=== PATIENT | male | born 1995 | race Caucasian/White ===

== ENCOUNTER 2021-03-29 15:15 | Outpatient (CLI) | payer OTHER, SELFPAY ==
[2021-03-29 18:53] LABS: Basophils Percent Auto 0.7 % (0.2-1.2); Eosinophils Absolute Auto 0.1 K/mm3 (0-0.3); Eosinophils Percent Auto 1.4 % (0-4.4); Hematocrit 42.2 % (42.0-52.0); Hemoglobin 14.7 g/dL (14.0-18.0); Immature Granulocyte Absolute 0.01 K/mm3 (0.00-0.031); Immature Granulocyte Percent A 0.2 % (0-0.5); Lymphocytes Absolute Auto 1.15 K/mm3 (0.9-3.2); Lymphocytes Percent Auto 19.7 % (18.3-44.2); Mean Corpuscular HGB Conc 34.8 g/dl (32-36); Mean Corpuscular Hemoglobin 30.8 pg (26-34); Mean Corpuscular Volume 88.5 fl (80-100); Mean Platelet Volume 10.8 fl (7.4-10.4); Monocytes Absolute Auto 0.5 K/mm3 (0.1-0.6); Monocytes Percent Auto 9.3 % (2.6-8.5); Neutrophils Percent Auto 68.7 % (45.5-73.1); Platelet Count Result 238 k/mm3 (150-375); Red Blood Count 4.77 M/mm3 (4.6-6.20); Red Cell Distribution Width 12.5 % (11.5-14.5); White Blood Count 5.8 K/mm3 (4.5-10.0)
[2021-03-29 19:03] LABS: Alanine Aminotransferase 51 U/L (4-50); Albumin Level 4.9 g/dL (3.5-5.1); Alkaline Phosphatase 60 U/L (38-126); Anion Gap 7 mmol/L (8-16); Aspartate Amino Transferase 34 U/L (17-59); Bilirubin,Total 0.8 mg/dL (0.2-1.3); Blood Urea Nitrogen 16 mg/dL (9-20); Calcium 9.7 mg/dL (8.4-10.2); Carbon Dioxide 29 mmol/L (22-30); Chloride 100 mmol/L (98-107); Cholesterol 170 mg/dL (0-200); Estimated Glomerular Filt Rate > 60; Glucose 81 mg/dL (65-110); HDL Direct 62 mg/dL; Potassium 4.1 mmol/L (3.4-5.0); Sodium 136 mmol/L (137-145); Triglycerides 141 mg/dL (<150)
[2021-03-29 19:14] LABS: LDL Cholesterol Direct 93 mg/dL
== END 2021-03-29 15:16 | disposition home or self-care (01) ==
PROVIDERS: PCP Internal Medicine Infectious Disease; Visit Provider Internal Medicine Infectious Disease
DX: Z00.00 Encounter for general adult medical examination without abnormal findings (principal)
CPT/HCPCS: 36415; 80053; 80061; 85025

== ENCOUNTER 2021-09-10 11:28 | Outpatient (CLI) | payer OTHER, SELFPAY ==
[2021-09-10 19:36] LABS: Iron 145 ug/dL (49-181)
[2021-09-10 19:45] LABS: Percent Iron Saturation 42 % (20-50)
== END 2021-09-10 11:29 | disposition home or self-care (01) ==
PROVIDERS: PCP Internal Medicine Infectious Disease; Visit Provider Internal Medicine Infectious Disease
DX: R42 Dizziness and giddiness (principal)
CPT/HCPCS: 36415; 82728; 83540; 83550

== ENCOUNTER 2022-01-02 17:54 | Emergency (ER) | payer OTHER, SELFPAY ==
[2022-01-02 18:00] VITALS: BP 128/87; PULSE 56; RESP 20; TEMP 36.8; O2SAT 100
--- NOTE | 2022-01-02 18:05 | ED.WOUNDLAC ---
HPI - Wound/Laceration General Chief Complaint: Wound/Laceration Stated Complaint: right thumb lac Time Seen by Provider: 01/02/22 18:23 Source: patient and RN notes reviewed Mode of arrival: ambulatory Limitations: no limitations History of Present Illness HPI narrative: 26-year-old male presents with concern for injury to the first digit of his right hand. Reports just prior to arrival he was slicing peppers when he sliced the tip of the digit. Reports the skin flap came off, he rinsed it and reapply the skin flap and applied pressure and then presented to [facility] care. He reports he is up-to-date on his tetanus vaccination. He reports the bleeding is under control. He reports pain to the tip of the digit Related Data Allergies Allergy/AdvReac Type Severity Reaction Status Date / Time Sulfa (Sulfonamide Allergy Unknown Unknown Verified 01/02/22 18:10 Antibiotics) Review of Systems Review of Systems: CONSTITUTIONAL: Denies malaise, chills, sweats, or fever. SKIN: Reports laceration to the tip of the first digit of the right hand MUSCULOSKELETAL: Denies muscle skeletal pain NEUROLOGIC: Denies numbness, weakness All systems reviewed & are unremarkable except as noted in HPI and below PMFSH Social History Social History Smoking status: Never smoker Alcohol intake: current Substance use: never Substance use type: does not use Comments At time of signature, agree with nursing past medical, surgical, social and family history. There is no relevant family history pertinent to the presenting complaint Exam Narrative: GENERAL: Well-appearing, well-nourished, and in no acute distress. HEAD: Normocephalic, atraumatic. EYES: PERRLA, conjunctivae clear, and EOMI. ENT: Mucous membranes moist. Oropharynx without edema, erythema or lesions. NECK: Supple. No lymphadenopathy CHEST: Clear to auscultation. No respiratory distress. HEART: Regular rate and rhythm. SKIN: Warm, dry. 0.75 cm circular wound with skin flap noted to the tip of the first digit of the right hand. Skin is adhered, no active bleeding. Skin flap is somewhat pale with slow cap refill. NEURO: Alert and oriented x3. PSYCH: Normal mood and affect Course Course Emergency Course: Wound was soaked with technic care and saline, skin flap was well adhered to the tissue and there was no active bleeding. However the skin flap was pale without good cap refill, the skin flap appears to be superficial involving the epidermis and dermis. Discussed options with patient of leaving the skin flap, treating prophylactically for infection versus removing the skin flap and treating for avulsion. It was decided to leave the skin flap, glue the skin and treat prophylactically Patient is aware of diagnosis, understands and agrees to treatment plan. Anticipatory guidance given. Patient agrees to follow-up as directed and is aware of reasons to seek care at the emergency department. Portions of this record may have been created with voice recognition software Level of Care: Express Care Visit Vital Signs Vital signs: Reviewed. Procedures Laceration Laceration 1: Date: 01/02/22 Time: 18:35 Site: hand Side (If applicable): right Size (cm): 0.75 Description: flap Depth: simple, single layer Pre-repair: irrigated ====== Skin Level ====== Skin layer closed with: dermabond ====== Subcutaneous Layer ====== ====== Muscle Layer ====== ====== Tendon Layer ====== MDM - Wound/Laceration MDM Narrative Medical decision making narrative: Exam findings show no acute concerns or changes; patient is non-toxic appearing and is in no distress. Patient is appropriate for outpatient treatment and follow-up. Differential Diagnosis Differential diagnosis: Likely laceration, abrasion and avulsion of skin Critical Care Time Critical Care
== END 2022-01-02 18:53 | disposition home or self-care (01) ==
PROVIDERS: Emergency Provider Nurse Practitioner; PCP Internal Medicine Infectious Disease
DX: S61.011A Laceration without foreign body of right thumb without damage to nail, initial encounter (principal); W45.8XXA Other foreign body or object entering through skin, initial encounter; Y93.G9 Activity, other involving cooking and grilling
CPT/HCPCS: 12001; 99213; G0463

== ENCOUNTER 2022-05-15 08:26 | Outpatient (CLI) | payer OTHER, SELFPAY ==
[2022-05-15 19:47] LABS: Hematocrit 43.2 % (42.0-52.0); Hemoglobin 14.1 g/dL (14.0-18.0); Mean Corpuscular HGB Conc 32.6 g/dl (32-36); Mean Corpuscular Hemoglobin 30.1 pg (26-34); Mean Corpuscular Volume 92.1 fl (80-100); Mean Platelet Volume 11.1 fl (7.4-10.4); Platelet Count Result 209 k/mm3 (150-375); Red Blood Count 4.69 M/mm3 (4.6-6.20); White Blood Count 5.2 K/mm3 (4.5-10.0)
[2022-05-15 20:51] LABS: Alanine Aminotransferase 68 U/L (6-50); Albumin Level 4.6 g/dL (3.5-5.1); Alkaline Phosphatase 58 U/L (38-126); Anion Gap 4 mmol/L (8-16); Aspartate Amino Transferase 41 U/L (17-59); Blood Urea Nitrogen 11 mg/dL (9-20); Carbon Dioxide 31 mmol/L (22-30); Chloride 100 mmol/L (98-107); Cholesterol 154 mg/dL (0-200); Estimated Glomerular Filt Rate > 60; Glucose 82 mg/dL (65-110); HDL Direct 45 mg/dL; Potassium 4.1 mmol/L (3.4-5.0); Sodium 135 mmol/L (137-145); Triglycerides 94 mg/dL (<150)
[2022-05-15 21:01] LABS: LDL Cholesterol Direct 83 mg/dL
[2022-05-15 22:34] LABS: Iron 130 ug/dL (49-181)
[2022-05-15 22:43] LABS: Percent Iron Saturation 36 % (20-50)
== END 2022-05-15 08:27 | disposition home or self-care (01) ==
LOC: ANHBWCLAB 08:30
PROVIDERS: PCP Family Medicine; Visit Provider Family Medicine
DX: Z00.00 Encounter for general adult medical examination without abnormal findings (principal); R74.8 Abnormal levels of other serum enzymes; H81.10 Benign paroxysmal vertigo, unspecified ear
CPT/HCPCS: 36415; 80053; 80061; 83540; 83550; 85027

== ENCOUNTER 2022-07-11 16:13 | Emergency (ER) | payer OTHER, SELFPAY ==
[2022-07-11 16:18] VITALS: BP 126/80; PULSE 65; RESP 16; TEMP 36.7; O2SAT 100
--- NOTE | 2022-07-11 16:41 | ED.URI ---
HPI - URI/Sore Throat General Chief Complaint: Upper Respiratory Infection Stated Complaint: productive cough, toothache Time Seen by Provider: 07/11/22 16:41 Source: patient, RN notes reviewed and old records reviewed Mode of arrival: ambulatory Limitations: no limitations History of Present Illness HPI Narrative: 26-year-old male presents to [facility] with 5 day history postnasal drainage, congestion, fevers, sinus drainage and pressure. Patient reports that he has been taking NyQuil,DayQuil, Sudafed, Mucinex, Tylenol and Ibuprofen for his symptoms. Patient states that he has some upper front teeth discomfort and reports history of previous sinus infections. MD elicited complaint: cough and sore throat Pertinent past history: sinusitis Onset (ago): day(s) (5) Pain scale (0-10): 6 Treatments prior to arrival: acetaminophen, ibuprofen, cold medicine and antibiotics Related Data Allergies Allergy/AdvReac Type Severity Reaction Status Date / Time Sulfa (Sulfonamide Allergy Unknown Unknown Verified 07/11/22 16:25 Antibiotics) Review of Systems Review of Systems: CONSTITUTIONAL: Reports malaise, chills, sweats, or fever. EYES: Denies visual changes, redness, or discharge. ENT: Reports rhinorrhea, congestion, sinus pain,no otalgia no sore throat. CARDIOVASCULAR: Denies chest pain, palpitations, or edema. RESPIRATORY: Reports cough.? Denies dyspnea. GASTROINTESTINAL: Denies abdominal pain, nausea, vomiting, diarrhea SKIN: Denies rash or itching. MUSCULOSKELETAL: Denies myalgia. NEUROLOGIC: Reports headache. All systems reviewed & are unremarkable except as noted in HPI and below PMFSH Past Medical History Medical History (Updated 07/11/22 @ 17:05 by Heydi Lynn NP) Anxiety Sinusitis Social History Social History Smoking status: Never smoker Alcohol intake: current Substance use: never Substance use type: does not use Lack of Transportation: No Lack of Food: Never True Current Housing: I Have Housing Concerned About Future Housing: No Difficulty Paying Gas/Electric Bills: No Difficulty Paying for Meds: No Currently Unemployed: No Education: Bachelor's Degree Difficulty w/ Childcare or Family Care: No Comments At time of signature, agree with nursing past medical, surgical, social and family history. There is no relevant family history pertinent to the presenting complaint Exam Narrative: GENERAL: Well-appearing, well-nourished, and in no acute distress. HEAD: Normocephalic EYES: PERRLA, conjunctivae clear ENT: Nares clear, turbinates edematous and erythematous, clear discharge. Mucous membranes moist. TM pearly craven with dull light reflex bilaterally; no tragal tenderness. Oropharynx erythematous without lesions. Tonsils not enlarged and without exudate, no drooling, no hoarseness, no trismus, uvula midline.post nasal drainage NECK: Supple. No lymphadenopathy CHEST: Clear to auscultation, breath sounds equal. No wheezing, rhonchi, rales, or stridor. No respiratory distress, speaks in full sentences.SAO2 100% on room air HEART: Regular rate and rhythm. No murmur heard. SKIN: Warm, dry, no rash. NEURO: Alert and oriented x3. PSYCH: Normal mood and affect Course Course Emergency Course: Patient is aware of diagnosis, understands and agrees to treatment plan.? Anticipatory guidance given.? Patient agrees to follow-up as directed and is aware of reasons to seek care at the emergency department. Portions of this record may have been created with voice recognition software Level of Care: Express Care Visit Vital Signs Vital signs: Vital Signs Temperature 36.7 C 07/11/22 16:18 Pulse Rate 65 07/11/22 16:18 Respiratory Rate 16 07/11/22 16:18 Blood Pressure 126/80 07/11/22 16:18 Pulse Oximetry 100 07/11/22 16:18 Oxygen Delivery Room Air 07/11/22 16:18 Temperature 3
== END 2022-07-11 17:00 | disposition home or self-care (01) ==
PROVIDERS: Emergency Provider Registered Nurse; PCP Family Medicine
DX: J01.40 Acute pansinusitis, unspecified (principal)
CPT/HCPCS: 99213; G0463

== ENCOUNTER 2022-09-02 10:36 | Outpatient (CLI) | payer OTHER, SELFPAY ==
[2022-09-02 20:28] LABS: Iron 80 ug/dL (49-181)
[2022-09-02 20:37] LABS: Percent Iron Saturation 22 % (20-50)
== END 2022-09-02 10:37 | disposition home or self-care (01) ==
LOC: ANHBWCLAB 10:38
PROVIDERS: PCP Family Medicine; Visit Provider Family Medicine
DX: E61.1 Iron deficiency (principal)
CPT/HCPCS: 36415; 82728; 83540; 83550

== ENCOUNTER 2022-10-11 18:42 | Emergency (ER) | payer OTHER, SELFPAY ==
[2022-10-11 18:49] VITALS: BP 134/68; PULSE 74; RESP 16; TEMP 36.8; O2SAT 100
--- NOTE | 2022-10-11 18:59 | ED.URI ---
HPI - URI/Sore Throat General Chief Complaint: Upper Respiratory Infection Stated Complaint: sore throat Time Seen by Provider: 10/11/22 19:00 History of Present Illness HPI Narrative: 27-year-old male presented for complaint of sore throat for 4 days. Endorses ears felt like they are burning, and had a day of chills at onset. He denies shortness of breath, wheezing, nausea, vomiting, fevers or chills. Has taken Tylenol for symptoms. States he had a negative strep test 2 days ago at an outside urgent care. Related Data Allergies Allergy/AdvReac Type Severity Reaction Status Date / Time Sulfa (Sulfonamide Allergy Unknown Unknown Verified 07/11/22 16:25 Antibiotics) Review of Systems Review of Systems: CONSTITUTIONAL: Denies body aches, fever, chills, or sweats. EYES: Denies visual changes, redness, or discharge. ENT: Reports sore throat Denies rhinorrhea, congestion, or otalgia. CARDIOVASCULAR: Denies chest pain, palpitations, or edema. RESPIRATORY: Denies dyspnea. GASTROINTESTINAL: Denies abdominal pain, nausea, vomiting, or diarrhea. SKIN: Denies rash, itching, or wounds. MUSCULOSKELETAL: Denies back pain, joint pain, or myalgia. NEUROLOGIC: Denies headache PMFSH Past Medical History Medical History Anxiety Sinusitis Social History Social History Smoking status: Never smoker Alcohol intake: current Substance use: never Substance use type: does not use Lack of Transportation: No Lack of Food: Never True Current Housing: I Have Housing Concerned About Future Housing: No Difficulty Paying Gas/Electric Bills: No Difficulty Paying for Meds: No Currently Unemployed: No Education: Bachelor's Degree Difficulty w/ Childcare or Family Care: No Exam Narrative: GENERAL: well-appearing, no acute distress. EYES: conjunctivae clear ENT: Mucous membranes moist. TM pearly craven with normal light reflex bilaterally; no tragal tenderness. Oropharynx erythematous Tonsils 1+ without exudate. No drooling, no hoarseness, no trismus, uvula midline. No tripod positioning, hot potato voice, or soft palate swelling. NECK: Supple. No lymphadenopathy CHEST: Clear to auscultation, breath sounds equal. No respiratory distress, speaks in full sentences. HEART: Regular rate and rhythm. No murmur heard. SKIN: Warm, dry, no rash. NEURO: Alert and oriented x3. Course Course Emergency Course: Patient is aware of diagnosis, understands and agrees to treatment plan. Anticipatory guidance given. Patient agrees to follow-up as directed and is aware of reasons to seek care at the emergency department. Portions of this record may have been created with voice recognition software Level of Care: Express Care Visit Vital Signs Vital signs: Vital Signs Temperature 98.2 F 10/11/22 18:49 Pulse Rate 74 10/11/22 18:49 Respiratory Rate 16 10/11/22 18:49 Blood Pressure 134/68 10/11/22 18:49 Pulse Oximetry 100 10/11/22 18:49 Oxygen Delivery Room Air 10/11/22 18:49 Temperature 98.2 F 10/11/22 18:49 Pulse Rate 74 10/11/22 18:49 Respiratory Rate 16 10/11/22 18:49 Blood Pressure 134/68 10/11/22 18:49 Pulse Oximetry 100 10/11/22 18:49 Oxygen Delivery Room Air 10/11/22 18:49 MDM - URI/Sore Throat MDM Narrative Medical decision making narrative: strep result reviewed with pt. Advise supportive treatments. Patient is appropriate for outpatient treatment and follow-up. Differential Diagnosis Differential diagnosis: Likely upper respiratory infection, viral infection and pharyngitis Discharge Plan Discharge Clinical Impression: Pharyngitis Patient Disposition: Home, Self-Care Condition: Stable Instructions: Antibiotic Form, Pharyngitis (ED) Additional Instructions: Rapid strep swab was negative today You will be notifi
== END 2022-10-11 19:18 | disposition home or self-care (01) ==
PROVIDERS: Emergency Provider Nurse Practitioner Family; PCP Family Medicine
DX: J02.9 Acute pharyngitis, unspecified (principal)
CPT/HCPCS: 87081; 87880; 99213; G0463

== ENCOUNTER 2023-05-07 16:16 | Outpatient (CLI) | payer OTHER, SELFPAY ==
--- NOTE | ~2023-05-07 | US_ITS ---
EXAMINATION: US soft tissue head and neck DATE: 05/07/2023 16:47 INDICATION: Enlarged lymph nodes with palpable lumps the left submandibular region TECHNIQUE: Multiple grayscale and Doppler ultrasound images of the left submandibular region of rosita rn were obtained. COMPARISON: None FINDINGS/IMPRESSION: Palpable abnormality of concern corresponds to a normal sized 7 x 5 x 3 mm left submandibular lymph n ode with normal central echogenic fatty hilum. Reviewed, dictated and finalized at location A. [facility]
== END 2023-05-07 16:17 | disposition home or self-care (01) ==
LOC: ANHIMG 16:19
PROVIDERS: PCP Family Medicine; Visit Provider Family Medicine
DX: R59.0 Localized enlarged lymph nodes (principal)
CPT/HCPCS: 76536

== ENCOUNTER 2023-09-25 19:34 | Emergency (ER) | payer OTHER, SELFPAY ==
--- NOTE | 2023-09-25 19:41 | ED.URI ---
HPI - URI/Sore Throat General Chief Complaint: Upper Respiratory Infection Stated Complaint: Sinus Pain Time Seen by Provider: 09/25/23 19:41 Source: patient, RN notes reviewed and old records reviewed Mode of arrival: ambulatory Limitations: no limitations History of Present Illness HPI Narrative: 28-year-old male presents to the [facility] with complaints of sinus pain and pressure for 8 days, Has a history of multiple sinus infections over the last year. Has tried [id number] products with no relief Related Data Allergies Allergy/AdvReac Type Severity Reaction Status Date / Time Sulfa (Sulfonamide Allergy Unknown Unknown Verified 09/25/23 19:42 Antibiotics) Review of Systems Review of Systems: All systems reviewed & are unremarkable except as noted in HPI and below Constitutional: Constitutional: Reports no additional constitutional complaints Eyes: Eyes: Reports no additional eye complaints ENT: Reports as per HPI, Reports nasal congestion and Reports sinus pressure Cardiovascular: Cardiovascular: Reports no additional cardiovascular complaints, Denies chest pain and Denies dyspnea Respiratory: Respiratory: Reports no additional respiratory complaints, Denies chest congestion, Denies cough and Denies dyspnea Gastrointestinal: Gastrointestinal: Reports no additional gastrointestinal complaints, Denies abdominal pain, Denies nausea and Denies vomiting Musculoskeletal: Musculoskeletal: Reports no additional musculoskeletal complaints Integumentary/Breasts: Skin/Breast: Reports system reviewed and no additional complaints, except as docu Neurologic: Reports system reviewed and no additional complaints, except as documented Psychiatric: Psychiatric: Reports no additional psychiatric complaints Allergic/Immunologic: Allergic/Immunologic: Reports no additional allergic/immunologic complaints [facility] Past Medical History Medical History Anxiety Sinusitis Social History Social History Smoking status: Never smoker Alcohol intake: current Substance use: never Substance use type: does not use Lack of Transportation: No Lack of Food: Never True Current Housing: I Have Housing Concerned About Future Housing: No Difficulty Paying Gas/Electric Bills: No Difficulty Paying for Meds: No Currently Unemployed: No Education: Bachelor's Degree Difficulty w/ Childcare or Family Care: No Comments At the time of my signature, I reviewed and agree with the nursing past medical, surgical, social, and family history. There is no relevant family history pertinent to the patient complaint. Exam Const: General: cooperative, healthy appearing, comfortable, no acute distress, well developed, alert and well nourished Nutritional Appearance: well nourished Orientation/consciousness: patient oriented x3 Limitations: no limitations HENMT: Head: normal to inspection Ears: hearing grossly normal bilaterally, external ears normal, TM's normal bilaterally, EAC's normal, mastoids normal and no periauricular adenopathy Face/Nose/Sinus: Normal external nose present, Normal nares present, Abnormal mucous membranes and turbinates present boggy and erythematous, normal facial exam, face symmetric, No erythema, No edema and sinus tenderness Face and sinus: normal facial exam and face symmetric Mouth: Yes Normal oral and palatal mucosa present, Yes lip normal and Yes moist mucous membranes Throat: posterior oropharynx normal and uvula midline Eyes: General: appearance normal, both eyes and all related structures Alignment and Position: alignment normal Periorbital: periorbital findings normal Pupils: Equal, round and reactive pupils present EOM: EOMs intact bilaterally Neck: Neck: normal visual inspection, full ROM, no lymphadenopathy and no meningeal signs Chest: Chest palpation & inspection: normal i
[2023-09-25 19:42] VITALS: BP 150/90; PULSE 70; RESP 16; TEMP 36.9; O2SAT 98
[2023-09-25 19:43] VITALS: BP 150/90; PULSE 70; RESP 16; TEMP 36.9; O2SAT 98
== END 2023-09-25 20:00 | disposition home or self-care (01) ==
PROVIDERS: Emergency Provider Nurse Practitioner; PCP Family Medicine
DX: J32.9 Chronic sinusitis, unspecified (principal)
CPT/HCPCS: 99213; G0463

== ENCOUNTER 2024-06-13 09:46 | Emergency (ER) | payer OTHER, SELFPAY ==
[2024-06-13 09:56] VITALS: BP 135/86; PULSE 61; RESP 20; TEMP 36.7; O2SAT 100
--- NOTE | 2024-06-13 10:17 | ED_ITS ---
HPI - Dental/Oral General Chief complaint: Dental/Oral Stated complaint: Mouth Sore Time Seen by Provider: 06/13/24 10:17 Source: patient Mode of arrival: ambulatory Limitations: no limitations History of Present Illness HPI Narrative: 28-year-old male presents with sore to back of mouth for approximately 1 week. Reports worsening of swelling and redness with pain radiating to jaw and right ear. Patient states about a week ago he was eating a piece of pie and the crust on the pad I cut the back of his mouth. Afebrile. All systems reviewed and negative except as noted above. Related Data Allergies Allergy/AdvReac Type Severity Reaction Status Date / Time Sulfa (Sulfonamide Allergy Unknown Unknown Verified 06/13/24 09:56 Antibiotics) Review of Systems Review of Systems: CONSTITUTIONAL: Denies fever, chills, or sweats. EYES: Denies visual changes, redness, or discharge. ENT: Denies rhinorrhea, congestion, sore throat, or otalgia. Reports sore to back of mouth with redness and swelling. CARDIOVASCULAR: Denies chest pain, palpitations, or edema. RESPIRATORY: Denies cough or dyspnea. GASTROINTESTINAL: Denies abdominal pain, nausea, vomiting, or diarrhea. GENITOURINARY: Denies dysuria or hematuria. SKIN: Denies rash or itching. MUSCULOSKELETAL: Denies back pain, joint pain, or myalgia. NEUROLOGIC: Denies headache, numbness, or weakness. PSYCHIATRIC: Denies anxiety or depression. All other systems reviewed are negative, except as documented in HPI. [facility] Past Medical History Medical History Anxiety Sinusitis Social History Social History Smoking status: Never smoker Alcohol intake: current Substance use: never Substance use type: does not use Lack of Transportation: No Lack of Food: Never True Current Housing: I Have Housing Concerned About Future Housing: No Difficulty Paying Gas/Electric Bills: No Difficulty Paying for Meds: No Currently Unemployed: No Education: Bachelor's Degree Difficulty w/ Childcare or Family Care: No Comments At time of signature, agree with nursing past medical, surgical, social and family history. There is no relevant family history pertinent to the presenting complaint. Exam Narrative: GENERAL: This is a well-nourished, well-developed patient, in no apparent distress. HEAD: normocephalic, atraumatic. EYES: PERRL. Sclera clear/white. Vision is grossly intact. EARS: External ears normal NOSE: External nose normal THROAT: Infected abrasion to posterior pharynx, right side, erythematous and swollen with small amount yellow drainage to center NECK: Neck supple, non-tender without lymphadenopathy, masses or thyromegaly. CARDIOVASCULAR: Regular rate and rhythm without murmurs, gallops, or rubs. RESPIRATORY: Clear to auscultation. Breath sounds equal bilaterally. No wheezes, rales, or rhonchi. SKIN: warm, Dry, intact with no suspicious lesions or rash, good texture and turgor. NEURO: awake, alert, and oriented to person, place and time. There were no obvious focal neurologic abnormalities. EXTREMITIES: No joint tenderness, effusion, or edema noted. Course Course Level of Care: Express Care Visit Vital Signs Vital signs: Vital Signs Temperature 36.7 C 06/13/24 09:56 Pulse Rate 61 06/13/24 09:56 Respiratory Rate 20 06/13/24 09:56 Blood Pressure 135/86 06/13/24 09:56 Pulse Oximetry 100 06/13/24 09:56 Oxygen Delivery Room Air 06/13/24 09:56 Temperature 36.7 C 06/13/24 09:56 Pulse Rate 61 06/13/24 09:56 Respiratory Rate 20 06/13/24 09:56 Blood Pressure 135/86 06/13/24 09:56 Pulse Oximetry 100 06/13/24 09:56 Oxygen Delivery Room Air 06/13/24 09:56 reviewed MDM - Dental/Oral MDM Narrative Medical decision making narrative: will treat infected abrasion to oral mucosa with Augmentin. Patient is well- appearing, nontoxic. Patient is aware of diagnosis, understands and agrees to treatment plan. Anticipatory guidance given. Patient agrees to follow-up as directed and is aware of reasons to seek care at the emergency department. Portions of this record may have been created with voice recognition software Discharge Plan Discharge Clinical Impression: Infection of oral mucosa Patient Disposition: Home, Self-Care Condition: Stable Instructions: Antibiotic Form Additional Instructions: Take antibiotic as prescribed Until gone. Take ibuprofen or Tylenol every 6-8 hours as needed for pain. Continue with normal oral hygiene. Apply lidocaine ointment to affected area every 4-6 hours as needed for pain. Follow-up with primary care physician or your dentist if not improving. Patient Language: Wolof Prescriptions: New amoxicillin-pot clavulanate 875-125 mg tablet 1 tablet PO Q12H 10 Days Qty: 20 0RF lidocaine HCl [Lidocaine Viscous] 2 % solution 1 applic mucous membrane Q4-6H PRN (Reason: pain) Qty: 100 0RF Rx Instructions: apply sparingly to painful tooth/gums Follow-up/Referrals: Renetta Dolan APRN [Primary Care Provider] - Time of Disposition: 10:24
--- OUTSIDE RECORDS SUMMARY | 2024-06-13 10:26 | XMS_ITS | Clinical Summary ---
Author Organization [facility] Care Team Providers Care Finance Executive Name Role Phone Unavailable Primary Care Provider Unavailabl e Social History Tobacco Use Types Packs/Day Years Used Date Smoking Tobacco: Never Assessed Sex and Gender Information Value Date Recorded Sex Assigned at Not on file Legal Sex Male 9:02 PM CDT Gender Identity Not on file Sexual Orientation Not on file Plan of Treatment Health Maintenance Due Date Last Done Comments Hepatitis C Virus (HCV) Screening 1994 TdaP Immunization 1994 Hepatitis B Immunization (1 of 3 - 19+ 3-dose series) 2013 Influenza Immunization (#1) 2024 SARS-COV-2 Immunization ( - 2023- season) 2024 Respiratory Syncytial Virus (RSV) Immunization (Adult) (1 - 1-dose 75+ series) 2069 Meningococcal Immunization (ACWY) Aged Out No longer eligible based on patient's age to complete this topic Pneumococcal Immunization Combined Aged Out No longer eligible based on patient's age to complete this topic Rotavirus Immunization Aged Out No lo nger eligible based on patient's age to complete this topic
--- OUTSIDE RECORDS SUMMARY | 2024-06-13 10:26 | XMS_ITS | Clinical Summary ---
Author Organization [facility] [address] Address [address] [place] [address] Phone Care Team Providers Care Front Of House Manager Name Role Phone Bhargav Ross MD Primary Care Provider [phone]- [phone] Allergies Active Allergy Reactions Criticality Noted Date Comments Sulfa (Sulfonamide Antibiotics) Medications multivitamin (MULTIPLE VITAMINS) tablet tablet take 1 tablet by oral route every day with food 0 0 10/03/2014 Active omega 5-svy-idl-fish oil (FISH OIL) 60-90-500 mg capsule,delayed release(DR/EC) 0 0 10/03/2014 Active loratadine 10 mg capsule Take by mouth Activ e albuterol HFA (PROVENTIL HFA,VENTOLIN HFA,PROAIR HFA) 90 mcg/actuation inhaler Inhale 2 puffs every 6 (six) hours as needed for wheezing 1 each 1 11/07/2021 Active Active Problems No known active problems Immunizations Name Administration Dates Next Due Influenza, Quadrivalent, Spl it, Preservative Free, Intramuscular 03/29/2021 Influenza, Split 05/19/2013 Tdap 06/05/2021 Social History Tobacco Use Types Packs/Day Years Used Date Smoking Tobacco: Former Smokeless Tobacco: Former Alcohol Use Standard Drinks/Week Comments Yes 2 (1 standard drink = 0.6 oz pur e alcohol) Personal Safety Answer Date Recorded Getting School Help Needed Not on file 07/09 Sex and Gender Information Value Date Recorded Sex Assigned at Not on file Legal Sex Male 1:44 AM PAINT STOCKMAN Gender Identity Male 09/09/2018 12:11 PM CDT Sexual Orientation Straight 09/09/2018 12 :11 PM CDT Obstetrics History Last Filed Vital Signs Vital Sign Reading Time Taken Comments Blood Pressure 130/86 06/11/2021 11:03 AM PAINT STOCKMAN Pulse 62 06/11/2021 11:00 AM PAINT STOCKMAN Temperature 36.3 ??C (97.3 ??F) 06/11/2021 1 1:00 AM PAINT STOCKMAN Respiratory Rate 16 06/11/2021 11:0 0 AM PAINT STOCKMAN Oxygen Saturation 98% 06/11/2021 11: 00 AM PAINT STOCKMAN Inhaled Oxygen Concentration - - Weight 71.1 kg (156 lb 12.8 oz) 022 11:00 AM PAINT STOCKMAN Height 172.7 cm (5' 8 ) 12/21/2018 11:2 2 AM CDT Body Mass Index 23.84 12/21/2018 11:22 AM CDT Plan of Treatment Not on file Insurance [facility] Care Teams Front Of House Manager Relationship Specialty Start Date End Date Bhargav Ross MD [address] [place] [address] PCP - General 08/11/16
--- OUTSIDE RECORDS SUMMARY | 2024-06-13 10:26 | XMS_ITS | Referral Summary ---
Author Organization CC [facility] [address] Address [address] [place] [address] Phone Care Team Providers Care Dish Carrier Name Role Phone Bhargav Ross MD Primary Care Provider [phone]- [phone] Allergies Active Allergy Reactions Criticality Noted Date Comments Sulfa (Sulfonamide Antibiotics) Medications multivitamin (MULTIPLE VITAMINS) tablet tablet take 1 tablet by oral route every day with food 0 0 10/03/2014 Active omega 5-clx-fjo-fish oil (FISH OIL) 60-90-500 mg capsule,delayed release(DR/EC) [...] on file Legal Sex Male 1:44 AM MARINE OPERATIONS COORDINATOR Gender Identity Male 09/09/2018 12:11 PM CDT Sexual Orientation Straight 09/09/2018 12 :11 PM CDT Last Filed Vital Signs Vital Sign Reading Time Taken Comments Blood Pressure 130/86 06/11/2021 11:03 AM MARINE OPERATIONS COORDINATOR Pulse 62 06/11/2021 11:00 AM MARINE OPERATIONS COORDINATOR Temperature 36.3 ??C (97.3 ??F) 06/11/2021 1 1:00 AM MARINE OPERATIONS COORDINATOR Respiratory Rate 16 06/11/2021 11:0 0 AM MARINE OPERATIONS COORDINATOR Oxygen Saturation 98% 06/11/2021 11: 00 AM MARINE OPERATIONS COORDINATOR Inhaled Oxygen Concentration - - Weight 71.1 kg (156 lb 12.8 oz) 022 11:00 AM MARINE OPERATIONS COORDINATOR Height 172.7 cm (5' 8 ) 12/21/2018 11:2 2 AM CDT Body Mass Index 23.84 12/21/2018 11:22 AM CDT Plan of Treatment Not on file Insurance [facility] Member Subscriber Plan / Payer (Ef fective 2016-Present) Name:Horace Mohan Member ID:[id number] Relation to Subscriber:Child Name:HUBERT MOHAN Subscriber ID:[id number] Date of :1958 (Home) Address: [address] [place] [id number] Payer ID:[id number] Type:[employer] HMO/PPO Address: [facility] [id number] [place] [address] [facility] [place] [facility] Care Teams Dish Carrier Relationship Specialty Start Date End Date Bhargav Ross MD [address] [place] [address] PCP - General 08/11/16
== END 2024-06-13 10:32 | disposition home or self-care (01) ==
PROVIDERS: Emergency Provider Nurse Practitioner Family; PCP Nurse Practitioner Adult Health
DX: K13.79 Other lesions of oral mucosa (principal)
CPT/HCPCS: 99213; G0463

== ENCOUNTER 2024-07-20 07:28 | Outpatient (CLI) | payer OTHER, SELFPAY ==
--- OUTSIDE RECORDS SUMMARY | 2024-07-20 07:33 | XMS_ITS | Clinical Summary ---
Author Organization [facility] Care Team Providers Care Cricket Coach Name Role Phone Unavailable Primary Care Provider [...]
--- OUTSIDE RECORDS SUMMARY | 2024-07-20 07:33 | XMS_ITS | Referral Summary ---
Author Organization [facility] [address] Address [address] [place] [address] Phone Care Team Providers Care Animal Husbandry Professor Name Role Phone Bhargav Ross MD Primary Care Provider [phone]- [phone] Allergies Active Allergy Reactions Criticality Noted Date Comments Sulfa (Sulfonamide Antibiotics) Medications multivitamin (MULTIPLE VITAMINS) tablet tablet take 1 tablet by oral route every day with food 0 0 10/03/2014 Active omega 8-whu-ytr-fish oil (FISH OIL) 60-90-500 mg capsule,delayed release(DR/EC) 0 0 10/03/2014 Active loratadine 10 mg capsule Take by mouth Activ e albuterol HFA (PROVENTIL HFA,VENTOLIN HFA,PROAIR HFA) 90 mcg/actuation inhaler Inhale 2 puffs every 6 (six) hours as needed for wheezing 1 each 1 11/07/2021 Active Active Problems No known active problems Immunizations Immunization Administration Dates Next Due Influenza, Quadrivalent, Spl [...] on file Legal Sex Male 1:44 AM COMPRESSOR OPERATOR Gender Identity Male 09/09/2018 12:11 PM CDT Sexual Orientation Straight 09/09/2018 12 :11 PM CDT Last Filed Vital Signs Vital Sign Reading Time Taken Comments Blood Pressure 130/86 06/11/2021 11:03 AM COMPRESSOR OPERATOR Pulse 62 06/11/2021 11:00 AM COMPRESSOR OPERATOR Temperature 36.3 C (97.3 F) 06/11/2021 11:00 AM COMPRESSOR OPERATOR Respiratory Rate 16 06/11/2021 11:0 0 AM COMPRESSOR OPERATOR Oxygen Saturation 98% 06/11/2021 11: 00 AM COMPRESSOR OPERATOR Inhaled Oxygen Concentration - - Weight 71.1 kg (156 lb 12.8 oz) 022 11:00 AM COMPRESSOR OPERATOR Height 172.7 cm (5' 8 ) 12/21/2018 11:2 2 AM CDT Body Mass Index 23.84 12/21/2018 11:22 AM CDT Plan of Treatment Not on file Insurance [facility] Care Teams Animal Husbandry Professor Relationship Specialty Start Date End Date Bhargav Ross MD [address] [place] [address] PCP - General 08/11/16
--- OUTSIDE RECORDS SUMMARY | 2024-07-20 07:33 | XMS_ITS | Clinical Summary ---
Author Organization [facility] [address] Address [address] [place] [address] Phone Care Team Providers Care Cuffing Machine Operator Name Role Phone Bhargav Ross MD Primary Care Provider [phone]- [phone] Allergies Active Allergy Reactions Criticality Noted Date Comments Sulfa (Sulfonamide Antibiotics) Medications multivitamin (MULTIPLE VITAMINS) tablet tablet take 1 tablet by oral route every day with food 0 0 10/03/2014 Active omega 1-pre-mps-fish oil (FISH OIL) 60-90-500 mg capsule,delayed release(DR/EC) [...] on file Legal Sex Male 1:44 AM SERVICE AIDE Gender Identity Male 09/09/2018 12:11 PM CDT Sexual Orientation Straight 09/09/2018 12 :11 PM CDT Obstetrics History Last Filed Vital Signs Vital Sign Reading Time Taken Comments Blood Pressure 130/86 06/11/2021 11:03 AM SERVICE AIDE Pulse 62 06/11/2021 11:00 AM SERVICE AIDE Temperature 36.3 C (97.3 F) 06/11/2021 11:00 AM SERVICE AIDE Respiratory Rate 16 06/11/2021 11:0 0 AM SERVICE AIDE Oxygen Saturation 98% 06/11/2021 11: 00 AM SERVICE AIDE Inhaled Oxygen Concentration - - Weight 71.1 kg (156 lb 12.8 oz) 022 11:00 AM SERVICE AIDE Height 172.7 cm (5' 8 ) 12/21/2018 11:2 2 AM CDT Body Mass Index 23.84 12/21/2018 11:22 AM CDT Plan of Treatment Not on file Insurance [facility] Care Teams Cuffing Machine Operator Relationship Specialty Start Date End Date Bhargav Ross MD [address] [place] [address] PCP - General 08/11/16
[2024-07-20 18:36] LABS: Basophils Percent Auto 0.7 % (0.2-1.2); Eosinophils Absolute Auto 0.1 K/mm3 (0-0.3); Eosinophils Percent Auto 1.1 % (0-4.4); Hematocrit 45.4 % (42.0-52.0); Hemoglobin 14.8 g/dL (14.0-18.0); Immature Granulocyte Absolute 0.01 K/mm3 (0.00-0.031); Immature Granulocyte Percent A 0.2 % (0-0.5); Lymphocytes Absolute Auto 1.42 K/mm3 (0.9-3.2); Mean Corpuscular HGB Conc 32.6 g/dl (32-36); Mean Corpuscular Hemoglobin 30.1 pg (26-34); Mean Corpuscular Volume 92.3 fl (80-100); Mean Platelet Volume 11.3 fl (7.4-10.4); Monocytes Absolute Auto 0.5 K/mm3 (0.1-0.6); Neutrophils Absolute Auto 2.6 K/mm3 (1.3-6.7); Platelet Count Result 256 k/mm3 (150-375); Red Blood Count 4.92 M/mm3 (4.6-6.20); Red Cell Distribution Width 13.2 % (11.5-14.5); White Blood Count 4.6 K/mm3 (4.5-10.0)
[2024-07-20 18:44] LABS: Alanine Aminotransferase 34 U/L (6-50); Albumin Level 4.7 g/dL (3.5-5.1); Alkaline Phosphatase 66 U/L (38-126); Anion Gap 9 mmol/L (4-12); Aspartate Amino Transferase 54 U/L (17-59); Blood Urea Nitrogen 15 mg/dL (9-20); Calcium 9.4 mg/dL (8.4-10.2); Carbon Dioxide 28 mmol/L (22-30); Chloride 101 mmol/L (98-107); Cholesterol 144 mg/dL (0-200); Estimated Glomerular Filt Rate > 60; Glucose 92 mg/dL (65-110); HDL Direct 52 mg/dL; Potassium 3.8 mmol/L (3.4-5.0); Sodium 138 mmol/L (137-145); Triglycerides 67 mg/dL (<150)
[2024-07-20 18:49] LABS: Iron 112 ug/dL (49-181)
[2024-07-20 18:55] LABS: LDL Cholesterol Direct 70 mg/dL
[2024-07-20 19:02] LABS: Percent Iron Saturation 33 % (20-50)
== END 2024-07-20 07:29 | disposition home or self-care (01) ==
LOC: ANHBWCLAB 07:29
PROVIDERS: PCP Nurse Practitioner Adult Health; Visit Provider Nurse Practitioner Adult Health
DX: E61.1 Iron deficiency (principal); Z13.9 Encounter for screening, unspecified
CPT/HCPCS: 36415; 80053; 80061; 82728; 83540; 83550; 85025